=== PATIENT | female | born 1975 | race Caucasian/White ===

== ENCOUNTER 2018-05-06 20:54 | Emergency (ER) | payer MEDICAID ==
[~2018-05-06] VITALS: Ht 157.5 cm; Wt 77.1 kg
--- NOTE | 2018-05-06 21:27 | NUR ---
PT BIBSELF C/O LOWER ABDOMINAL PAIN, +DYSURIA,+HEMATURIA,+FREQUENCY-FEVER,-N/V/D; PT AAOX4, RESPIRATIONS EVEN AND UNLABORED, NO SOB, NAD NOTED, PT ON MONITOR, VSS, PENDING ER PROVIDER EVAL
--- NOTE | 2018-05-06 21:40 | NUR ---
URINE COLLECTED AND SENT TO LAB
[2018-05-06] MEDS ORDERED: IBUPROFEN 600 MG TABLET PO ONE ×2 (22:00→22:06)
[2018-05-06 22:01] LABS: APPEARANCE,URINE Slightly Cloudy (CLEAR); BILIRUBIN,URINE SMALL (NEGATIVE); BLOOD, URINE Large Ery/uL (NEGATIVE); COLOR,URINE Red (YELLOW); KETONES,URINE Negative (NEGATIVE); LEUKOCYTE ESTERASE ,URINE Small (NEGATIVE); NITRITE, URINE Negative (NEGATIVE); PROTEIN,URINE >=300 mg/dl (NEGATIVE); UGLUCOSE Negative (NEGATIVE); UROBILINOGEN,URINE 0.2 EU/dL (0.2)
[2018-05-06] MEDS ORDERED: PHENAZOPYRIDINE HCL 200 MG TABLET PO ONE (22:30)
[2018-05-06] MEDS ORDERED: PHENAZOPYRIDINE HCL 200 MG TABLET ONE (22:30)
[2018-05-06 22:54] LABS: BACTERIA,URINE Few /HPF (None Seen); RBC,URINE TOO NUMEROUS TO COUN /HPF (0-2); SQUAMOUS EPITHELIAL CELL,UR Few /HPF (None Seen)
[2018-05-06 22:55] LABS: WBC,URINE 51-80 /HPF (0-3)
[2018-05-06 23:18] VITALS: BP 149/83
--- NOTE | 2018-05-06 23:20 | NUR ---
Patient discharged to home in stable condition. Written and verbal after care instructions given. Patient verbalizes understanding of instruction.
== END 2018-05-06 23:21 | disposition home or self-care (01) ==
LOC: ER 21:00
DX: N39.0 Urinary tract infection, site not specified (principal); Z98.890 Other specified postprocedural states
CPT/HCPCS: 81001; 84703; 87077; 87086; 87186; 99283; A4606; Z7610; 81000-TC